=== PATIENT | female | born 1965 | race Caucasian/White ===

== ENCOUNTER 2016-10-26 10:54 | Outpatient (CLI) ==
--- NOTE | 2016-10-26 11:47 | DI ---
EXAM: Pelvis AP view, bilateral hips lateral views HISTORY: Bilateral hip pain. FINDINGS: Bone and joint structures appear normal. There is no displaced fracture or joint disloca tion seen. General bone density and soft tissues are within normal limits. IMPRESSION: Findings within normal limits. No fracture or significant arthropathy.
== END 2016-10-26 10:55 | disposition home or self-care (01) ==
LOC: RAD 10:54
PROVIDERS: ATTEND Family Medicine
DX: M25.552 Pain in left hip (principal); M25.551 Pain in right hip

== ENCOUNTER 2017-06-14 10:54 | Outpatient (CLI) | END 2017-06-14 10:55 | disposition home or self-care (01) | LOC: RAD 10:54 | PROVIDERS: ATTEND Family Medicine | DX: M79.89 Other specified soft tissue disorders (principal) ==